=== PATIENT | female | born 1970 | race Caucasian/White ===

== ENCOUNTER 2023-04-17 07:41 | Emergency (ER) | payer OTHER ==
[~2023-04-17] VITALS: Ht 167.6 cm; Wt 75.8 kg
[2023-04-17] MEDS ORDERED: dexamethasone 4mg tablet PO STA (08:41)
[2023-04-17 08:58] VITALS: TEMP 98.3
[2023-04-17] MEDS: dexamethasone 4mg tablet PO STA (09:09)
[2023-04-17] MEDS: DEXAMETHASONE 6 MG TABLET PO ONE (09:09)
[2023-04-17 09:44] LABS: HEMOGLOBIN 14.9 g/dl (12.0-16.0); MEAN CORPUSCULAR HEMOGLOBIN 32.3 PG (27.0-31.0); WHITE BLOOD COUNT 5.7 X10'3 (4.5-11.0)
[2023-04-17 09:46] LABS: BASOPHILS % (AUTO) 0.8 % (0-1); EOSINOPHILS % (AUTO) 0.1 % (0-6); HEMATOCRIT 43.6 % (35.0-45.0); MEAN CORPUSCULAR HGB CONC 34.2 g/dL (33.0-36.5); MEAN CORPUSCULAR VOLUME 94.4 FL (78-98); MEAN PLATELET VOLUME 7.4 FL (7.4-10.4); MONOCYTES # (AUTO) 0.8 X10'3 (0-0.9); MONOCYTES % (AUTO) 13.7 % (2-12); NEUTROPHILS # (AUTO) 3.9 X10'3 (1.8-7.7); NEUTROPHILS % (AUTO) 67.4 % (42-75); PLATELET COUNT 230 X10'3 (140-440); RED BLOOD COUNT 4.61 X10'6 (4.20-5.60)
[2023-04-17 10:02] LABS: ALANINE AMINOTRANSFERASE 16 U/L (12-78); ALBUMIN 3.6 G/DL (3.4-5.0); ALKALINE PHOSPHATASE 69 IU/L (46-116); ANION GAP 9 (8-16); ASPARTATE AMINO TRANSFERASE 15 U/L (10-37); BILIRUBIN,TOTAL 0.4 MG/DL (0.1-1.0); BLOOD UREA NITROGEN 12 MG/DL (7-18); BUN/CREATININE RATIO 17.6 (10.0-20.0); CALCIUM 8.7 MG/DL (8.5-10.1); CHLORIDE 105 MMOL/L (99-107); CREATININE 0.68 MG/DL (0.40-0.90); GLUCOSE 92 MG/DL (70-104); POTASSIUM 3.8 MMOL/L (3.5-5.1); SODIUM 139 MMOL/L (135-145); TOTAL CARBON DIOXIDE 25.1 MMOL/L (24-32); TOTAL PROTEIN 7.1 G/DL (6.4-8.2); eCRCL 89 ML/MIN; eGFR 90 ML/MIN
[2023-04-17 10:13] LABS: PRO BRAIN NATRIURETIC PEPTIDE 94 PG/ML (0-125)
[2023-04-17] MEDS: ipratropium/albuterol 3ml nebule NEB STA (10:19)
[2023-04-17] MEDS ORDERED: NIRM1TAB PO (10:34)
[2023-04-17] MEDS ORDERED: DEC4T PO (10:34)
[2023-04-17 10:54] VITALS: BP 154/92; PULSE 93; RESP 18; O2SAT 96
== END 2023-04-17 10:58 | disposition home or self-care (01) ==
LOC: ER 07:42
DX: U07.1 COVID-19 (principal); J06.9 Acute upper respiratory infection, unspecified; R05.9 Cough, unspecified; Z88.8 Allergy status to other drugs, medicaments and biological substances; Z79.899 Other long term (current) drug therapy
CPT/HCPCS: 36415; 71045; 80053; 83880; 84484; 85025; 87502; 87503; 87811; 99284; J8540

== ENCOUNTER 2023-04-22 08:01 | Emergency (ER) | payer SELFPAY ==
[~2023-04-22] VITALS: Ht 167.6 cm; Wt 73.2 kg
[~2023-04-22 08:01] MED LIST: NIRM1TAB PO
[2023-04-22 08:04] VITALS: TEMP 97.5
[2023-04-22 09:06] VITALS: BP 150/77; PULSE 60; RESP 17; O2SAT 93
[2023-04-22] MEDS ORDERED: ALBU2.5V7 NEB (09:14)
== END 2023-04-22 10:22 | disposition home or self-care (01) ==
LOC: ER 08:01
DX: U07.1 COVID-19 (principal); J45.909 Unspecified asthma, uncomplicated; Z88.8 Allergy status to other drugs, medicaments and biological substances; Z79.899 Other long term (current) drug therapy
CPT/HCPCS: 36415; 87811; 99283

== ENCOUNTER 2024-05-26 09:34 | Emergency (ER) | payer OTHER ==
[~2024-05-26] VITALS: Ht 167.6 cm; Wt 78.8 kg
[~2024-05-26 09:34] MED LIST changes: +ALBU2.5V7 NEB
[2024-05-26 09:48] VITALS: BP 192/97; TEMP 97.8
[2024-05-26] MEDS: ipratropium/albuterol 3ml nebule NEB STA (11:29)
[2024-05-26 11:33] VITALS: PULSE 85; RESP 20; O2SAT 95
[2024-05-26 11:41] VITALS: PULSE 82; RESP 20; O2SAT 99
[2024-05-26] MEDS ORDERED: ALBU8HFA PO (12:47)
== END 2024-05-26 12:56 | disposition home or self-care (01) ==
LOC: ER 09:35
DX: J44.9 Chronic obstructive pulmonary disease, unspecified (principal); Z88.8 Allergy status to other drugs, medicaments and biological substances
CPT/HCPCS: 71045; 94640; 94760; 99283

== ENCOUNTER 2025-01-03 10:22 | Emergency (ER) | payer SELFPAY ==
[~2025-01-03] VITALS: Ht 167.6 cm; Wt 72.7 kg
[2025-01-03 10:30] VITALS: TEMP 98
--- NOTE | 2025-01-03 10:59 | RADIOLOGY REPORT ---
DI ANKLE, COMPLETE(3VW MIN), INDICATION: ANKLE PAIN TECHNICAL DATA:Frontal , oblique and lateral views were obtained of the left ankle. COMPARISON: None FINDINGS: No fracture is identified. Joint spaces are maintained. Alignment is anatomic. Soft tissues are swollen laterally. IMPRESSION: No acute fracture or dislocation of the left ankle.
--- NOTE | 2025-01-03 12:54 | Physician Documentation ---
History of Present Illness ~ Chief Complaint: Ankle pain Stated Complaint: FRACTURED ANKLE Time Seen by MD: 12:49 Primary Medical Doctor: NONE HPI Patient is seen Today with complaints of pain of her left ankle after accidentally rolling it just prior to arrival while taking her dog for a walk. Patient has no other concern or complaint at this time. Tetanus witin 5 years: Yes Medication Reconciliation Allergies: Coded Allergies: dimenhydrinate (Unverified Allergy, Unknown, 01/03/25) Scheduled Nirmatrelvir/Ritonavir (Paxlovid Co-Pack (Eua)), 3 TAB PO Q12H Scheduled PRN Albuterol Sulfate (Albuterol Sulfate), 1 VIAL NEB Q4HPRN PRN for wheezing Past Medical History Past Medical History: Asthma Review of Systems Constitutional: Denies: chills, fever, weakness Eyes: Denies: pain, blurred vision ENT: Denies: ear pain, nose pain, throat pain, mouth pain Respiratory: Denies: cough, shortness of breath Cardiovascular: Denies: chest pain, palpitations Gastrointestinal: Denies: abdominal pain, nausea, vomiting Genitourinary: Denies: burning, dysuria Female Genitalia: Denies: vaginal discharge, pelvic pain Neurological: Denies: headache, dizziness Musculoskeletal: Denies: pain, swelling Integumentary: Denies: rash, lesions Allergic/Immunologic: Denies: hives, itching Hematologic/Lymphatic: Denies: no symptoms reported Psychiatric: Denies: depression, anxiety Physical Exam Vital Signs: Temperature: 98.0, Source: Temporal, Heart Rate: 98, Respiratory Rate: 18, BP: 154/94, Pulse Oximetry: 98, Weight: 72.730 Physical Exam General: Awake and Alert, no acute distress. HEENT: Conjunctiva pink, Sclera clear, Mucus Membranes moist. Neck: Supple without masses and tenderness. Resp: Unlabored. Lungs clear to auscultation bilaterally. Heart: Regular Rate and rhythm, normal S1 and S2 without murmur, rub or gallop. Musculoskeletal: Patient on exam does have soft tissue swelling of the left lateral ankle with tenderness to palpation of the distal fibula. Patient has decreased range of motion due to pain. Patient is neurovascularly intact distally. Motor function intact distally. Extremities: No cyanosis,clubbing or edema. Skin: Warm and Dry. Progress Results/Orders Results/Orders Orders - HALL,ADRI R PAC Ankle, Complete(3vw Min) (01/03/25 10:33) Completed Orders - ADRI HALL PAC Ankle, Complete(3vw Min) (01/03/25 10:33) Vital Signs 01/03/25 10:30 Temp 98.0 Pulse 98 Resp 18 B/P (MAP) 154/94 Pulse Ox 98 EKG/XRAY/CT/US/VASC/MRI Bone/Soft Tissue X-Ray (Ext.) : Additional Comment Left ankle interpreted by myself today shows no acute fracture, no osteolytic or blastic lesions and bones in anatomic alignment. DIAGNOSTIC RADIOLOGY Patient: SONAM FINLEY Medical Record: [id number] HOSPITAL : 1970, Age: 54 Sex: Female Location: ER Patient Status: [facility] ER Service Date/Time: 01/03/251032 Ordering Physician: ADRI HALL Exam: ANKLE, COMPLETE(3VW MIN) DI ANKLE, COMPLETE(3VW MIN), INDICATION: ANKLE PAIN TECHNICAL DATA:Frontal , oblique and lateral views were obtained of the left ankle. COMPARISON: None FINDINGS: No fracture is identified. Joint spaces are maintained. Alignment is anatomic. Soft tissues are swollen laterally. IMPRESSION: No acute fracture or dislocation of the left ankle. Electronically Signed by:RANJAN DANIELS MD Date & Time: 01/03/251055 Dictated by: RANJAN DANIELS MD Dictation date and time: 01/03/251055 Primary Care Provider: NO PRIMARY CARE PROVIDER cc: ADRI HALL ~ Medical Decision Making Findings Patient is seen Today with complaints of pain of her left ankle after accidentally rolling it just prior to arrival while taking her dog for a walk. Patient has no other concern or complaint at this time. Patient did have x-rays taken of left ankle that show no sign of acute fracture. Patient will return to the ED in 7-10 days for repeat x-rays is pain continues. Patient will advance activity level as tolerated. Patient was given crutches and walking boot but she should begin to bear weight within 2-3 days. Patient will rest, ice, elevate and compress 20 minutes on 20 minutes off over the next 72 hours. Departure Disposition: 01 HOME / SELF CARE / HOMELESS Impression: Primary Impression: Sprain of ankle Qualified Codes: S93.402A - Sprain of unspecified ligament of left ankle, initial encounter Condition: Stable Discharge Instructions: Ankle Sprain Additional Instructions: Patient did have x-rays taken of left ankle that show no sign of acute fracture. Patient will return to the ED in 7-10 days for repeat x-rays is pain continues. Patient will advance activity level as tolerated. Patient was given crutches and walking boot but she should begin to bear weight within 2-3 days. Patient will rest, ice, elevate and compress 20 minutes on 20 minutes off over the next 72 hours. Referrals: NO PRIMARY CARE PROVIDER (PCP) Prescriptions Ibuprofen (Ibuprofen) 600 Mg Tablet 1 TAB PO Q8H for pain for 10 Days, #30 TAB 0 Refills with food Prov: ADRI HALL 01/03/25 Acetaminophen (Tylenol) 650 Mg Supp.rect 1 SUPP RC Q6H PRN PRN for pain or fever for 7 Days, #28 SUPP Prov: ADRI HALL 01/03/25 Signature Scribe Signature: No scribe Attestation: No scribe ADRI HALL Jan 03, 2025 12:54
[2025-01-03] MEDS ORDERED: IBUP600T52 PO (12:56)
[2025-01-03] MEDS ORDERED: TYL650S RC (12:56)
[2025-01-03 14:00] VITALS: BP 155/96; PULSE 89; RESP 16; O2SAT 98
== END 2025-01-03 14:02 | disposition home or self-care (01) ==
LOC: ER 10:23
DX: S93.492A Sprain of other ligament of left ankle, initial encounter (principal); J45.909 Unspecified asthma, uncomplicated; Z88.8 Allergy status to other drugs, medicaments and biological substances; Z79.899 Other long term (current) drug therapy; X50.1XXA Overexertion from prolonged static or awkward postures, initial encounter; Y93.89 Activity, other specified; Y92.89 Other specified places as the place of occurrence of the external cause; Y99.8 Other external cause status
CPT/HCPCS: 73610; 99284; L4360